=== PATIENT | female | born 1960 | race Caucasian/White ===

== ENCOUNTER 2018-03-16 16:30 | Outpatient (CLI) | payer BC ==
[2013-06-26 18:40] VITALS: O2SAT 97
== END 2018-03-16 16:31 | disposition home or self-care (01) ==
LOC: CONVCARE 16:30
PROVIDERS: ATTEND Orthopaedic Surgery
DX: M17.0 Bilateral primary osteoarthritis of knee (principal)
CPT/HCPCS: 73564

== ENCOUNTER 2018-07-13 13:12 | Inpatient (IN) | payer BC ==
[2018-07-13] MEDS: CYCLOBENZAPRINE 10 MG TAB PO PRN (15:51)
[2018-07-13] MEDS: TRAMADOL HYDROCHLORIDE 50 MG TAB PO PRN ×2 (15:51→20:56)
[2018-07-13] MEDS: FLUOXETINE HYDROCHLORIDE 10 MG CAP PO SCH (20:57)
[2018-07-13] MEDS: MELATONIN 3 MG TAB PO SCH (20:57)
[2018-07-14] MEDS: CYCLOBENZAPRINE 10 MG TAB PO PRN ×3 (01:37→21:50)
[2018-07-14] MEDS: TRAMADOL HYDROCHLORIDE 50 MG TAB PO PRN ×5 (01:37→19:16)
[2018-07-14] MEDS: CHOLECALCIFEROL 1,000 IU TAB PO SCH (08:39)
[2018-07-14] MEDS: RIVAROXABAN 10 MG TAB PO SCH (08:40)
[2018-07-14] MEDS: ASCORBIC ACID 500 MG TAB PO SCH (08:41)
[2018-07-14] MEDS ORDERED: TRAMADOL HYDROCHLORIDE 50 MG TAB PO ONE (08:45)
[2018-07-14] MEDS ORDERED: FLUTICASONE PROPIONATE SPR NAS PRN (09:00)
[2018-07-14] MEDS: ACETAMINOPHEN 500 MG 500 MG TAB PO PRN (19:17)
[2018-07-14] MEDS: MELATONIN 3 MG TAB PO SCH (21:47)
[2018-07-14] MEDS: FLUOXETINE HYDROCHLORIDE 10 MG CAP PO SCH (21:48)
[2018-07-15] MEDS: ACETAMINOPHEN 500 MG 500 MG TAB PO PRN ×2 (02:03→11:01)
[2018-07-15] MEDS: TRAMADOL HYDROCHLORIDE 50 MG TAB PO PRN ×4 (02:03→19:11)
[2018-07-15] MEDS: ASCORBIC ACID 500 MG TAB PO SCH (08:07)
[2018-07-15] MEDS: CHOLECALCIFEROL 1,000 IU TAB PO SCH (08:09)
[2018-07-15] MEDS: RIVAROXABAN 10 MG TAB PO SCH (08:09)
[2018-07-15] MEDS: CYCLOBENZAPRINE 10 MG TAB PO PRN ×2 (11:01→20:45)
[2018-07-15] MEDS: FLUOXETINE HYDROCHLORIDE 10 MG CAP PO SCH (20:42)
[2018-07-15] MEDS: MELATONIN 3 MG TAB PO SCH (20:42)
[2018-07-16] MEDS: TRAMADOL HYDROCHLORIDE 50 MG TAB PO PRN ×4 (01:33→18:23)
[2018-07-16] MEDS: ACETAMINOPHEN 500 MG 500 MG TAB PO PRN ×2 (01:33→18:30)
[2018-07-16] MEDS: CHOLECALCIFEROL 1,000 IU TAB PO SCH (08:00)
[2018-07-16] MEDS: ASCORBIC ACID 500 MG TAB PO SCH (08:00)
[2018-07-16] MEDS: RIVAROXABAN 10 MG TAB PO SCH (08:00)
[2018-07-16 08:10] VITALS: RESP 16
[2018-07-16] MEDS: CYCLOBENZAPRINE 10 MG TAB PO PRN ×2 (11:57→20:22)
[2018-07-16] MEDS: MELATONIN 3 MG TAB PO SCH (20:19)
[2018-07-16] MEDS: FLUOXETINE HYDROCHLORIDE 10 MG CAP PO SCH (20:19)
[2018-07-17] MEDS: ACETAMINOPHEN 500 MG 500 MG TAB PO PRN ×2 (01:09→14:45)
[2018-07-17] MEDS: TRAMADOL HYDROCHLORIDE 50 MG TAB PO PRN ×5 (01:09→21:46)
[2018-07-17] MEDS: CHOLECALCIFEROL 1,000 IU TAB PO SCH (08:00)
[2018-07-17] MEDS: ASCORBIC ACID 500 MG TAB PO SCH (08:01)
[2018-07-17] MEDS: RIVAROXABAN 10 MG TAB PO SCH (08:01)
[2018-07-17] MEDS: CYCLOBENZAPRINE 10 MG TAB PO PRN ×2 (12:52→21:46)
[2018-07-17] MEDS: FLUOXETINE HYDROCHLORIDE 10 MG CAP PO SCH (21:45)
[2018-07-17] MEDS: MELATONIN 3 MG TAB PO SCH (21:45)
[2018-07-18] MEDS: TRAMADOL HYDROCHLORIDE 50 MG TAB PO PRN ×4 (05:09→21:57)
[2018-07-18] MEDS: ACETAMINOPHEN 500 MG 500 MG TAB PO PRN ×3 (05:09→21:58)
[2018-07-18] MEDS: ASCORBIC ACID 500 MG TAB PO SCH (10:03)
[2018-07-18] MEDS: CHOLECALCIFEROL 1,000 IU TAB PO SCH (10:04)
[2018-07-18] MEDS: RIVAROXABAN 10 MG TAB PO SCH (10:05)
[2018-07-18] MEDS: CYCLOBENZAPRINE 10 MG TAB PO PRN ×2 (13:17→20:20)
[2018-07-18] MEDS: FLUOXETINE HYDROCHLORIDE 10 MG CAP PO SCH (20:20)
[2018-07-18] MEDS: MELATONIN 3 MG TAB PO SCH (20:20)
[2018-07-19] MEDS: TRAMADOL HYDROCHLORIDE 50 MG TAB PO PRN ×4 (02:00→19:41)
[2018-07-19] MEDS: ACETAMINOPHEN 500 MG 500 MG TAB PO PRN ×3 (06:40→19:41)
[2018-07-19] MEDS: ASCORBIC ACID 500 MG TAB PO SCH (08:50)
[2018-07-19] MEDS: CHOLECALCIFEROL 1,000 IU TAB PO SCH (08:51)
[2018-07-19] MEDS: RIVAROXABAN 10 MG TAB PO SCH (08:51)
[2018-07-19] MEDS: MELATONIN 3 MG TAB PO SCH (20:33)
[2018-07-19] MEDS: FLUOXETINE HYDROCHLORIDE 10 MG CAP PO SCH (20:33)
[2018-07-19] MEDS: CYCLOBENZAPRINE 10 MG TAB PO PRN (20:36)
[2018-07-20] MEDS: TRAMADOL HYDROCHLORIDE 50 MG TAB PO PRN ×3 (01:19→11:36)
[2018-07-20 07:26] VITALS: BP 127/80; PULSE 79; TEMP 97.3; O2SAT 97
[2018-07-20] MEDS: ASCORBIC ACID 500 MG TAB PO SCH (08:33)
[2018-07-20] MEDS: CHOLECALCIFEROL 1,000 IU TAB PO SCH (08:34)
[2018-07-20] MEDS: RIVAROXABAN 10 MG TAB PO SCH (08:34)
[2018-07-20] MEDS: ACETAMINOPHEN 500 MG 500 MG TAB PO PRN (11:36)
== END 2018-07-20 15:55 | disposition home or self-care (01) | DRG 351 ==
LOC: ACUTE CARE 15:09
PROVIDERS: ADMIT Family Medicine; ATTEND Family Medicine
PROC: F01L5ZZ Range of Motion and Joint Integrity Assessment of Musculoskeletal System - Lower Back / Lower Extremity (ICD-10-PCS; principal; 2018-07-14)
PROC: F01L0ZZ Muscle Performance Assessment of Musculoskeletal System - Lower Back / Lower Extremity (ICD-10-PCS; 2018-07-14)
PROC: F02Z0ZZ Bathing/Showering Assessment (ICD-10-PCS; 2018-07-14)
PROC: F02Z3ZZ Grooming/Personal Hygiene Assessment (ICD-10-PCS; 2018-07-14)
DX: M17.0 Bilateral primary osteoarthritis of knee (principal); Z96.653 Presence of artificial knee joint, bilateral
CPT/HCPCS: A9270-GY